=== PATIENT | female | born 1960 | race Caucasian/White ===

== ENCOUNTER 2017-01-24 12:12 | Emergency (ER) | payer OTHER ==
[~2017-01-24] VITALS: Ht 182.9 cm; Wt 77.2 kg
[2017-01-24 12:13] VITALS: BP 128/85
[2017-01-24] MEDS ORDERED: L.E.T SOLUTION TP ONE ×2 (13:00→13:05)
[2017-01-24] MEDS ORDERED: OXYcodone/APAP 5/325MG TABLET PO ONE (13:00)
[2017-01-24] MEDS ORDERED: OXYcodone/APAP 5/325MG TABLET ONE (13:05)
== END 2017-01-24 17:15 | disposition home or self-care (01) ==
LOC: ED 14:54
DX: S01.81XA Laceration without foreign body of other part of head, initial encounter (principal); S92.255A Nondisplaced fracture of navicular [scaphoid] of left foot, initial encounter for closed fracture; R07.89 Other chest pain; F32.9 Major depressive disorder, single episode, unspecified; G89.29 Other chronic pain; W19.XXXA Unspecified fall, initial encounter; Y93.89 Activity, other specified; Y99.8 Other external cause status; Y92.481 Parking lot as the place of occurrence of the external cause
CPT/HCPCS: 12011; 29515; 70450; 70486

== ENCOUNTER 2017-01-30 11:28 | Emergency (ER) | payer OTHER ==
[~2017-01-30] VITALS: Ht 182.9 cm; Wt 80.4 kg
[2017-01-30 11:31] VITALS: BP 112/72
== END 2017-01-30 12:03 | disposition home or self-care (01) ==
LOC: ED 11:57
DX: S01.111D Laceration without foreign body of right eyelid and periocular area, subsequent encounter (principal)
CPT/HCPCS: 99281